=== PATIENT | male | born 1950 | race Caucasian/White ===

== ENCOUNTER 2021-05-03 15:20 | Outpatient (CLI) | payer MEDICARE, OTHER, SELFPAY ==
--- NOTE | 2021-05-03 | BON_PTH ---
PATIENT: ANAIS CARO LOC: [facility]#:[id number] AGE/SX: 70/M ROOM: RE05/03/[address]: Dr. 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 No evidence of malignancy. Minute fragments of bone with no pathologic change. Negative for acid-fast bacilli and fungal organisms. See comment. AM:omaira 05/07/2021 COMMENT AFB and GMS stains with matched controls were used in the evaluation of this case. Scant fragments of benign skeletal muscle are also present. Clinical correlation is suggested. MICROSCOPIC DESCRIPTION Slides are reviewed. GROSS DESCRIPTION Received in fixative is one container labeled with the patient's name and designated mandibular lesion. The specimen consists of an irregular fragment of pink-velez soft tissue measuring 1.2 x 1 x 0.6 cm. The specimen is inked, sectioned and totally submitted in one cassette. / AM:omaira 05/04/2021 TC:2 CPT: 55029, 13094 x2
== END 2021-05-03 23:59 | disposition home or self-care (01) ==
LOC: LABSPEC 15:32
PROVIDERS: Visit Provider Dentist Oral and Maxillofacial Surgery
DX: M89.8X8 Other specified disorders of bone, other site (principal)
CPT/HCPCS: 88305; 88311; 88312

== ENCOUNTER → 2023-07-22 | Outpatient (CLI) | payer MEDICARE, OTHER, SELFPAY ==
[2023-07-22 16:30] LABS: Hematocrit 49.2 % (40-54); Hemoglobin 16.4 g/dL (13.0-16.5); Mean Corp Hgb Conc 33.3 g/dL (32-36); Mean Corpuscular Hgb 29.7 pg (27.0-32.0); Mean Corpuscular Volume 89.1 fL (80-94); Mean Platelet Vol. 10.7 fl (6.2-12.0); Platelet Count 175 K/mm3 (150-450); RBC Distribution Width CV 13.2 % (11.6-14.6); RBC Distribution Width SD 42.5 fl (35.1-43.9); Red Blood Count 5.52 M/mm3 (4.6-6.2); White Blood Count 7.9 K/mm3 (4.4-11.0)
[2023-07-22 16:58] LABS: ALB/GLOB Ratio 1.3 RATIO (0.9-2.4); AST(SGOT) 29 U/L (15-37); Alanine Aminotransfer ALT/SGPT 31 U/L (16-61); Albumin, Serum 4.2 g/dL (3.2-5.0); Alkaline Phosphatase 72 U/L (45-117); Anion Gap 3 (5-15); BUN 23 mg/dL (7-18); BUN/Creat Ratio 27.6 RATIO (10-20); Calcium,Total 9.2 mg/dL (8.5-10.1); Chloride 102 mmol/L (98-107); Creatinine, Serum 0.83 mg/dL (0.70-1.30); EST Glomerular Filtration Rate 96 mL/min (>60); Est Glom Filt Rate - Afr Amer 116 mL/min (>60); Globulin 3.3 g/dL (2.2-4.2); Glucose 90 mg/dL (74-106); Potassium 4.3 mmol/L (3.5-5.1); Protein, Total 7.5 g/dL (6.4-8.2); Sodium Level 138 mmol/L (136-145)
== END | disposition home or self-care (01) ==
PROVIDERS: PCP Family Medicine; Referring Provider Urology; Visit Provider Urology
DX: Z01.812 Encounter for preprocedural laboratory examination (principal)
CPT/HCPCS: 36415; 80053; 85027

== ENCOUNTER → 2023-09-04 | Outpatient (CLI) | payer MEDICARE, OTHER, SELFPAY ==
--- NOTE | 2023-09-04 14:52 | CT_ITS ---
HISTORY: Left testicle pain, surgery for left hydrocele 1 month ago, history of hernia repair. TECHNIQUE: Helically acquired images were obtained of the abdomen and pelvis without oral or IV contrast. A radiation dose optimization technique was used for this scan. 573 images. COMPARISON: None. FINDINGS: LOWER CHEST: Mild emphysema and atelectasis in the lung bases. BOWEL: Bowel including appendix nondilated. Colonic diverticulosis without focal pericolonic inflammatory change. PERITONEUM: No significant free fluid. LIVER: Unremarkable. GALLBLADDER/BILIARY TREE: Gallbladder present. SPLEEN: Calcified granulomas. PANCREAS/ADRENAL GLANDS: Unremarkable. KIDNEYS AND URETERS: No nephrolithiasis or hydronephrosis. Bilateral cysts measuring up to 2.8 cm on the right and 4.2 cm on the left. VESSELS: Tortuous descending thoracic aorta. Mild atherosclerosis of the abdominal aorta and its major branches. 3.1 cm infrarenal abdominal aortic aneurysm with eccentric calcification. 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 No acute retroperitoneal hematoma. PELVIC ORGANS: 5.1 x 6.5 cm prostate gland with small calcifications. ABDOMINAL WALL: Mild fat-containing right inguinal hernia. Moderate to large fat-containing left inguinal hernia extending into the scrotum with moderate left hydrocele noted. BONES: Degenerative change. CT/Abdomen/Pelvis without Cont IMPRESSION: Moderate to large fat-containing left inguinal hernia extending into the scrotum with moderate left hydrocele. Mild fat-containing right inguinal hernia. Enlarged prostate gland. Mild infrarenal abdominal aortic aneurysm. Right common iliac artery aneurysm. No acute rupture. Colonic diverticulosis without acute diverticulitis. Negative examination for renal stone. Bilateral renal cysts. Electronically Signed: Steffi Palafox MD at 15:23 EDT ,
== END | disposition home or self-care (01) ==
LOC: CT 14:46
PROVIDERS: PCP Family Medicine; Referring Provider Urology; Visit Provider Urology
DX: N43.3 Hydrocele, unspecified (principal)
CPT/HCPCS: 74176